=== PATIENT | male | born 1965 | race Caucasian/White ===

== ENCOUNTER 2017-12-01 18:44 | Emergency (ER) | payer SELFPAY ==
[~2017-12-01] VITALS: Ht 188 cm; Wt 150.0 kg
[2017-12-01 18:47] VITALS: BP 161/96; PULSE 95; RESP 15; TEMP 98.2; O2SAT 96
[2017-12-01] MEDS ORDERED: LISI40TA PO (19:13)
[2017-12-01] MEDS ORDERED: ALLO100T PO (19:13)
[2017-12-01] MEDS ORDERED: PERC5TAB12 PO (19:22)
[2017-12-01] MEDS ORDERED: GABA300C5 PO (19:22)
[2017-12-01] MEDS ORDERED: VALA1TAB PO (19:22)
--- NOTE | 2017-12-01 19:25 | PD ---
HPI Chief Complaint: Skin Problem Time Seen by Provider: 19:05 Travel History International Travel<30 days: No Contact w/Intl Traveler<30days: No Traveled to known affect area: No History of Present Illness HPI This is a 52-year-old male who presents for evaluation of a painful rash in his right anterior abdominal wall. Started this morning. He reports a burning sensation which is constant, worse with palpation. He denies any exposure to unusual plants or chemicals. He reports that he had shingles once 11 years ago and this feels similar. He has no other complaints at this time. FOR[facility]LY [facility] Past Medical History Diminished Hearing: No Hypertension: Yes Medical other: Yes (GOUT, RAYNAUDS) Social History Alcohol Use: Yes (OCC) Tobacco Use: No Substance Use: No Allergies-Medications (Allergen,Severity, Reaction): Coded Allergies: No Known Allergies (Unverified , 12/01/17) Reported Meds & Prescriptions Reported Meds & Active Scripts Active Valacyclovir (Valacyclovir HCl) 1,000 Mg Tab 1,000 Mg PO TID 7 Days Gabapentin 300 Mg Cap 300 Mg PO TID 5 Days Percocet (Oxycodone-Acetaminophen) 5-325 mg Tab 1 Tab PO Q6H PRN Reported Lisinopril 40 Mg Tab 40 Mg PO DAILY Allopurinol 100 Mg Tab 100 Mg PO BID Review of Systems Except as stated in HPI: all other systems reviewed are Neg Physical Exam Narrative GENERAL: Well-developed well-nourished male in no acute distress SKIN: Warm and dry. Erythematous papular vesicular rash in clumps noted on the right anterior abdominal wall at approximately the T11 dermatome distribution HEAD: Atraumatic. Normocephalic. EYES: Pupils equal and round. No scleral icterus. No injection or drainage. ENT: No nasal bleeding or discharge. Mucous membranes pink and moist. NECK: Trachea midline. No JVD. CARDIOVASCULAR: Regular rate and rhythm. No murmur appreciated. RESPIRATORY: No accessory muscle use. Clear to auscultation. Breath sounds equal bilaterally. GASTROINTESTINAL: Abdomen soft, non-tender, nondistended. Hepatic and splenic margins not palpable. MUSCULOSKELETAL: No obvious deformities. No clubbing. No cyanosis. No edema. NEUROLOGICAL: Awake and alert. No obvious cranial nerve deficits. Motor grossly within normal limits. Normal speech. PSYCHIATRIC: Appropriate mood and affect; insight and judgment normal. Data Data Last Documented VS Vital Signs Date Time Temp Pulse Resp B/P (MAP) Pulse Ox O2 Delivery O2 Flow Rate FiO2 12/01/17 18:47 98.2 95 15 161/96 (117) 96 Orders Orders Oxycodone-Acetamin 5-325 Mg (Percocet (12/01/17 19:30) Valacyclovir (Valtrex) (12/01/17 19:30) Gabapentin (Neurontin) (12/01/17 19:30) MDM Medical Decision Making Medical Screen Exam Complete: Yes Emergency Medical Condition: Yes Medical Record Reviewed: Yes Differential Diagnosis Shingles, allergic contact dermatitis, irritant contact dermatitis Narrative Course Examination and history are consistent with shingles. The patient is being discharged with bowel site Lavere, gabapentin, very short course of Percocet for breakthrough pain. He reports that his mother recently finished chemotherapy 4 days ago, strongly encouraged to avoid contact with her until rash is resolved. Diagnosis Primary Impression: Shingles Additional Instructions: Medication as prescribed. Do not drive or drink alcohol and taking Percocet. Follow-up with primary care and return for any emergent medical conditions. Med/Other Pt SpecificInfo: Prescription(s) given Scripts Valacyclovir (Valacyclovir) 1,000 Mg Tab 1000 MG PO TID for Mgmt Viral Infection for 7 Days, TAB 0 Refills Prov: Francisco Javier Lang MD 12/01/17 Gabapentin (Gabapentin) 300 Mg Cap 300 MG PO TID for 5 Days, CAP 0 Refills Prov: Francisco Javier Lang MD 12/01/17 Oxycodone-Acetaminophen (Percocet) 5-325 mg Tab 1 TAB PO Q6H Y for PAIN, #8 TAB 0 Refills Prov: Francisco Javier Lang MD 12/01/17 Disposition: 01 DISCHARGE HOME Condition: Stable Adonay Ramirez Dec 01, 2017 19:25
[2017-12-01] MEDS ORDERED: oxyCODONE/ACETAMINOPHEN 5 MG/325 MG TAB PO ONE (19:30)
[2017-12-01] MEDS ORDERED: GABAPENTIN 300 MG CAP PO ONE (19:30)
[2017-12-01] MEDS ORDERED: valACYclovir HCL 500 MG TAB PO ONE (19:30)
== END 2017-12-01 20:23 | disposition home or self-care (01) ==
LOC: NEPE 18:44
DX: B02.9 Zoster without complications (principal); I10 Essential (primary) hypertension; M10.9 Gout, unspecified; I73.00 Raynaud's syndrome without gangrene; Z79.899 Other long term (current) drug therapy
CPT/HCPCS: 99284

== ENCOUNTER 2017-12-04 16:16 | Emergency (ER) | payer SELFPAY ==
[~2017-12-04 16:16] MED LIST: ALLO100T PO; GABA300C5 PO; LISI40TA PO; PERC5TAB12 PO; VALA1TAB PO
[2017-12-04 16:20] VITALS: BP 150/84; PULSE 80; RESP 18; TEMP 98.2; O2SAT 99
[2017-12-04] MEDS ORDERED: PERC5TAB12 PO (21:28)
[2017-12-04] MEDS ORDERED: VALA1TAB PO (21:28)
[2017-12-04] MEDS ORDERED: GABA300C5 PO (21:28)
[2017-12-04] MEDS ORDERED: GABAPENTIN 300 MG CAP PO ONE (21:30)
[2017-12-04] MEDS ORDERED: oxyCODONE/ACETAMINOPHEN 5 MG/325 MG TAB PO ONE (21:30)
--- NOTE | 2017-12-04 21:36 | PD ---
HPI Chief Complaint: Skin Problem Time Seen by Provider: 21:18 Travel History International Travel<30 days: No Contact w/Intl Traveler<30days: No Traveled to known affect area: No History of Present Illness HPI 52-year-old white male presents to emergency department stating that he is having persistent symptoms of his shingles now for the past week. He was seen here earlier and was prescribed valacyclovir, Percocet and Neurontin. He states that he has gone through his medication and has had persistent blistering develop over last few days. Patient states that he has had shingles in the past and had to take a 14 day course of medicine. He is concerned that he will need this again. He also states that he had a fever last evening 102 F. He denies any fever today. No chest pain, shortness of breath, nausea, vomiting, diarrhea or urine symptoms. PFSH Past Medical History Narrative Medical Hypertension, Shingles Diminished Hearing: No Hypertension: Yes Tetanus Vaccination: < 5 Years Social History Alcohol Use: Yes (OCC) Tobacco Use: No Substance Use: No Allergies-Medications (Allergen,Severity, Reaction): Coded Allergies: No Known Allergies (Unverified , 12/01/17) Reported Meds & Prescriptions Reported Meds & Active Scripts Active Valacyclovir (Valacyclovir HCl) 1,000 Mg Tab 1,000 Mg PO TID 7 Days Gabapentin 300 Mg Cap 300 Mg PO TID 5 Days Percocet (Oxycodone-Acetaminophen) 5-325 mg Tab 1 Tab PO Q6H PRN Reported Lisinopril 40 Mg Tab 40 Mg PO DAILY Allopurinol 100 Mg Tab 100 Mg PO BID Review of Systems General / Constitutional: Positive: Fever Eyes: No: Visual changes HENT: No: Headaches Cardiovascular: No: Chest Pain or Discomfort Respiratory: No: Shortness of Breath Gastrointestinal: No: Abdominal Pain Genitourinary: No: Dysuria Musculoskeletal: No: Pain Skin: Positive Rash Neurologic: No: Weakness Psychiatric: No: Depression Endocrine: No: Polydipsia Hematologic/Lymphatic: No: Easy Bruising Physical Exam Narrative GENERAL: Well-developed, well-nourished in no acute distress. Nontoxic appearing. HEAD: Normocephalic, atraumatic. EYES: Pupils equal round and reactive. Extraocular motions intact. No scleral icterus. No injection or drainage. ENT: TMs clear without erythema. The external auditory canals clear. Nose: clear . Posterior pharynx is pink and moist. No tonsillar edema or exudate. Uvula midline. Airway patent. NECK: Trachea midline.Supple, nontender, moves head freely. No central bony tenderness or spasm. CARDIOVASCULAR: Regular rate and rhythm without murmurs, gallops, or rubs. RESPIRATORY: Clear to auscultation. Breath sounds equal bilaterally. No wheezes , rales, or rhonchi. GASTROINTESTINAL: Abdomen soft, non-tender, nondistended. No hepato-splenomegaly , or palpable masses. No guarding. EXTREMITIES: No clubbing, cyanosis, or edema. No joint tenderness, effusion, or edema noted. BACK: Nontender without deformity or crepitance. No flank tenderness. Skin: Patient has open weeping vesicles to the right anterior chest wall and axilla. No signs of any secondary infection. Data Data Last Documented VS Vital Signs Date Time Temp Pulse Resp B/P (MAP) Pulse Ox O2 Delivery O2 Flow Rate FiO2 12/04/17 16:20 98.2 80 18 150/84 (106) 99 Orders Orders Oxycodone-Acetamin 5-325 Mg (Percocet (12/04/17 21:30) Gabapentin (Neurontin) (12/04/17 21:30) Ed Discharge Order (12/04/17 21:31) [facility] Medical Decision Making Medical Screen Exam Complete: Yes Emergency Medical Condition: Yes Medical Record Reviewed: Yes Differential Diagnosis MDM: High Differential diagnoses: Abscess, folliculitis, cellulitis, lymphangitis, abrasion, contact dermatitis, shingles Narrative Course Patient is given Percocet 5 mg by mouth now. I agreed to refill the patient's medications. This is persistent shingles Diagnosis Primary Impression: persistent shingles Patient Instructions: Narcotic given in the ED, General Instructions Additional Instructions: Rest. Keep clean and dry. Apply calamine lotion several times a day. Medications as directed. Follow-up with a medical doctor within one week. Tylenol or Advil for any additional fever and pain control. Contact your mother's doctor before you follow up and see her. Med/Other Pt SpecificInfo: Prescription(s) given Scripts Valacyclovir (Valacyclovir) 1,000 Mg Tab 1000 MG PO TID for Mgmt Viral Infection for 7 Days, TAB 0 Refills Prov: Gwendolyn Jay DO 12/04/17 Gabapentin (Gabapentin) 300 Mg Cap 300 MG PO TID for 5 Days, CAP 0 Refills Prov: Gwendolyn Jay DO 12/04/17 Oxycodone-Acetaminophen (Percocet) 5-325 mg Tab 1 TAB PO Q6H Y for PAIN, #8 TAB 0 Refills Prov: Gwendolyn Jay DO 12/04/17 Disposition: 01 DISCHARGE HOME Condition: Stable Godfrey Denton Dec 04, 2017 21:36
== END 2017-12-04 21:56 | disposition home or self-care (01) ==
LOC: NEPK 16:16
DX: B02.9 Zoster without complications (principal); I10 Essential (primary) hypertension
CPT/HCPCS: 99281